=== PATIENT | male | born 1940 | race American Indian/Alaskan Native ===

== ENCOUNTER 2016-11-16 11:20 | Day surgery (SDC) | payer MEDICARE ==
[2016-10-01 12:40] VITALS: BMI 23.5
[~2016-11-16 11:20] MED LIST: mitoMYcin 40 MG/50 ML DISP.SYRIN (FOR OR USE) IC ONE
[2016-11-16] MEDS ORDERED: LIDOCAINE HCL 2% JELLY 10 ML CARTRIDGE ONE (13:01)
[2016-11-16] MEDS ORDERED: PROPOFOL 20 ML ONE (13:10)
[2016-11-16] MEDS ORDERED: MIDAZOLAM HCL 2 MG/2 ML SINGLE DOSE VIAL ONE (13:10)
[2016-11-16] MEDS ORDERED: ETOMIDATE 20 MG/10 ML AMPUL IVPUSH ONE (13:10)
[2016-11-16] MEDS ORDERED: ACETAMINOPHEN 1000 MG/100 ML VIAL (NON FORMULARY) IVPB ONE (13:14)
[2016-11-16] MEDS ORDERED: DEXTROSE 5%-0.45% SALINE 1,000 ML IV SCH (13:15)
[2016-11-16] MEDS ORDERED: ceFAZolin SODIUM 1 GM VIAL ONE (13:18)
[2016-11-16] MEDS ORDERED: ceFAZolin SODIUM 1 GM VIAL IVPB ONE (13:28)
[2016-11-16] MEDS ORDERED: PHENYLEPHRINE HCL 10 MG/1 ML SINGLE DOSE VIAL ONE (13:48)
[2016-11-16] MEDS ORDERED: oxyCODONE HCL 5 MG TABLET PO PRN (14:05)
[2016-11-16] MEDS ORDERED: ACETAMINOPHEN 325 MG TABLET (FP) PO PRN (14:05)
[2016-11-16] MEDS ORDERED: ONDANSETRON 4 MG/2 ML VIAL IVPUSH PRN (14:05)
[2016-11-16] MEDS ORDERED: LIDOCAINE HCL 2% JELLY 10 ML CARTRIDGE TP ONE (14:07)
--- NOTE | 2016-11-16 14:07 | HP ---
History & Physical Update - History History: No Change - Physical Physical: No Change - Assessment Assessment: No Change - Plan Plan: No Change
[2016-11-16] MEDS ORDERED: LACTATED RINGERS SOLUTION 1,000 ML IV SCH (14:15)
--- NOTE | 2016-11-16 14:22 | OP ---
Operative Note - Note: Operative Date: 11/16/16 Pre-Operative Diagnosis: superficial bladder cancer Operation: cystoscopy, transurethral resection of bladder tumor, instillation of mitomycin
[2016-11-16] MEDS ORDERED: ACETAMINOPHEN INJECTION 100 ML IVPB ONE (14:33)
[2016-11-16] MEDS ORDERED: oxyCODONE HCL 5 MG TABLET ONE (16:49)
[2016-11-16 17:49] VITALS: PULSE 78
[2016-11-16 18:00] VITALS: BP 128/70; TEMP 97.8
--- NOTE | 2016-11-17 12:23 | OP ---
DATE OF OPERATION: 11/16/2016 PREOPERATIVE DIAGNOSIS: Bladder cancer. POSTOPERATIVE DIAGNOSIS: Bladder cancer. PROCEDURE: Cystoscopy, transurethral resection of bladder tumor, large, and instillation of mitomycin. FINDINGS: There were multiple large bladder tumors on the lateral wall on the posterior wall and at the bladder neck anteriorly. SPECIMEN: Bladder tumor. DRAINS: Dunaway catheter. ESTIMATED BLOOD LOSS: 25 mL. SURGEON: Saulo Prince MD PREOPERATIVE INDICATIONS: The patient is a 76-year-old male with recurrent superficial bladder cancer. He comes to the OR for resection and instillation of mitomycin. OPERATION: The patient was brought to the OR, placed on the table in the supine position, given general anesthesia and IV antibiotics and placed in the modified lithotomy position. The groin was prepped and draped sterilely. Timeout was performed. Lidocaine was infused into the urethra. Cystoscopy was performed. The distal urethra was unremarkable. The sphincter was seen. The prostate was open and the bladder was examined. Both ureteral orifices were visualized. Lateral to the right ureteral orifice was a large tumor, appeared papillary in nature. On the posterior wall there were 3 large tumors seen, and at the anterior aspect of the bladder neck was a medium size bladder tumor. These were all resected, bases were fulgurated, and specimens were sent for pathological diagnosis. No evidence of perforation was noted. Good hemostasis was seen. The scope was removed. The Dunaway catheter was placed, and 50 mL of mitomycin 40 mg was infused into the bladder and then the Dunaway was clamped. The patient was woken up. Shavon [id number]
--- NOTE | 2016-11-18 15:57 | PATH ---
Surgical Pathology Report Patient Name: CODEY ORTEGA [facility]. Rec. #: [id number] /Age/Gender: 1940 (Age: 76) / M Account: [id number] Location: [facility] SURGICAL Taken: 11/16/2016 Received: 11/17/2016 Reported: 11/18/2016 Physicians: Saulo Prince M.D. Specimen(s) Received BLADDER TUMOR TUR Clinical History Urinary bladder cancer Final Diagnosis BLADDER, TUMOR, TUR: NON-INVASIVE LOW GRADE PAPILLARY UROTHELIAL CARCINOMA. LAMINA PROPRIA INVASION: NOT IDENTIFIED. MUSCULARIS PROPRIA (DETRUSOR): NOT DEFINITIVELY IDENTIFIED. CARCINOMA IN SITU (CIS): NOT IDENTIFIED. Electronically Signed Victor Manuel Miranda M.D. Gross Description Received in formalin labeled "bladder tumor" is a 4.2 x 3.8 x 0.3 cm aggregate of saxena fragments of soft tissue. The formalin is filtered and the specimen is entirely submitted in 3 cassettes. /11/17/2016 saudi11/17/2016
== END 2016-11-16 18:01 | disposition home or self-care (01) ==
LOC: JASU-SURG 11:20
PROVIDERS: ATTEND Urology
PROC: 3E0K8GC Introduction of Other Therapeutic Substance into Genitourinary Tract, Via Natural or Artificial Opening Endoscopic (ICD-10-PCS; 2016-11-16)
PROC: 0T5B8ZZ Destruction of Bladder, Via Natural or Artificial Opening Endoscopic (ICD-10-PCS; principal; 2016-11-16 13:00)
DX: C67.8 Malignant neoplasm of overlapping sites of bladder (principal)
CPT/HCPCS: 51720; 52240; J9280; 88307-TC; 94760

== ENCOUNTER 2019-02-17 09:51 | Observation (INO) | payer OTHER ==
[2019-02-17] MEDS ORDERED: ALBUTEROL SO4 0.083% IH SOL 2.5 MG/3 ML VIAL.NEB. NEB ONE ×2 (10:15→10:59)
[2019-02-17 10:21] VITALS: BMI 22.8
--- NOTE | 2019-02-17 10:28 | PDOC ---
History of Present Illness - General Chief Complaint: Abnormal Lab Results (Outside) Stated Complaint: HIGH POTASSIUM Time Seen by Provider: 02/17/19 10:00 History Source: Patient Exam Limitations: No Limitations - History of Present Illness Initial Comments: 02/17/19 10:16 CHIEF COMPLAINT: Abnormal lab PCP: Dr. Murry Palaeontologist: Jd Stoddard Mr. Roldan is a 76 year old male with a significant medical history of HTN, HLD , GERD, TIA, Borderline DM (diet controlled), CAD s/p CABG wh o presents to the ER for evaluation of abnormal labs Pt was seem at the office yesterday for a regularly scheduled and had labs drawn He was called this morning and told to come immediately to the ER The patient denies known renal insufficiency Incidentally, pt reports that when he wakes up in the morning, he has chest pressure and shortness of breath He had had this for the past 3-4 months He also notes exertional dyspnea No fevers or chills Recent Travel: None PAST MEDICAL HISTORY: See HPI PAST SURGICAL HISTORY: See HPI Social History: Smoking: Cigarette 3 daily Alcohol: None Drugs: None Lives with Spouse. Retired- [employer] Family History: Father: Diabetes Mother: HIV (blood transfusion) Sister: CHF Sister: Stomach Ca Brother- Prostate Ca Allergies No Known Allergies Allergy (Verified 05/15/16 15:57) ROS: GENERAL/CONSTITUTIONAL: No: fever, chills, weakness, loss of appetite. HEAD, EYES, EARS, NOSE AND THROAT: No: change in vision, ear pain, discharge, sore throat, throat swelling. CARDIOVASCULAR: No: chest pain, lightheadedness, palpitations, syncope RESPIRATORY: YeS: cough, shortness of breath, wheezing GASTROINTESTINAL: No: nausea, vomiting, diarrhea, abdominal cramping GENITOURINARY: No: dysuria, hematuria, frequency, urgency, flank pain. MUSCULOSKELETAL: No: back pain, neck pain, joint pain, muscle swelling or pain SKIN AND BREASTS: No: lesions, pallor, rash or easy bruising. NEUROLOGIC: No: headache, vertigo, paresthesias, weakness PE: GENERAL: The patient is in no acute distress. HEAD: Normal with no signs of trauma. EYES: PERRLA, EOMI, sclera anicteric, conjunctiva clear. ENT: Ears normal, nares patent, oropharynx clear without exudates. Moist mucous membranes. NECK: Normal range of motion, supple without lymphadenopathy, JVD, or masses. LUNGS: Breath sounds equal, clear to auscultation bilaterally. No wheezes, and no crackles. HEART:Regular rate and rhythm, normal S1 and S2 without murmur, rub or gallop. ABDOMEN: Soft, nontender, normoactive bowel sounds. EXTREMITIES: 2 + pitting edema to ankles, Normal range of motion NEUROLOGICAL: Cranial nerves II through XII grossly intact. Normal speech. No focal neurological deficits. MUSCULOSKELETAL: Back non-tender to palpation, no CVA tenderness SKIN: Warm, Dry, normal turgor, no rashes or lesions noted. 02/17/19 10:33 Past History - Past Medical History Allergies/Adverse Reactions: Allergies Allergy/AdvReac Type Severity Reaction Status Date / Time No Known Allergies Allergy Verified 02/17/19 10:00 Home Medications: Ambulatory Orders Atorvastatin Ca [Lipitor] 80 mg PO HS 10/26/14 Clopidogrel Bisulfate [Plavix -] 75 mg PO DAILY 10/26/14 Losartan Potassium [Cozaar -] 50 mg PO DAILY 10/26/14 Aspirin [ASA -] 81 mg PO DAILY 02/17/19 Cilostazol [Pletal -] 100 mg PO BID 02/17/19 Anemia: No Asthma: No Cancer: Yes (bladder cancer) Cardiac Disorders: Yes (ATR FIB, DVT, STENT) CVA: No (mini strokes ) COPD: Yes CHF: No Dementia: No Diabetes: Yes (Borderline) GI Disorders: Yes (GERD) Disorders: No HTN: Yes Hypercholesterolemia: Yes Liver Disease: No Seizures: No Thyroid Disease: No - Surgical History Abdominal Surgery: No Appendectomy: No Cardiac Surgery: Yes (Coronary Stents, CABG, fempop bypass 2017) Cholecystectomy: No Lung Surgery: No Neurologic Surgery: No Orthopedic Surgery: Yes (left knee arthroscopy apr 2017) - Suicide/Smoking/Psychosocial Hx Smoking History: Current some day smoker Have you smoked in the past 12 months: Yes Number of Cigarettes Smoked Daily: 10 If you are a former smoker, when did you quit?: 6 months ago Information on smoking cessation initiated: No 'Breaking Loose' booklet given: 10/02/16 Hx Alcohol Use: No Drug/Substance Use Hx: No Substance Use Type: None Hx Substance Use Treatment: No *Physical Exam - Vital Signs Last Vital Signs Temp Pulse Resp BP Pulse Ox 98.4 F 109 H 18 181/93 H 98 02/17/19 09:53 02/17/19 09:53 02/17/19 09:53 02/17/19 09:53 02/17/19 09:53 ED Treatment Course - LABORATORY CBC & Chemistry Diagram: 02/17/19 10:56 02/17/19 11:45 - RADIOLOGY Radiology Studies Ordered: Category Date Time Status CHEST X-RAY PORTABLE* [RAD] Stat Radiology 02/17/19 10:15 Ordered Medical Decision Making - Medical Decision Making 02/17/19 10:28 Mr Roldan presents for repeat labs due to findings of hyperkalemia on outpatient labs He has no history of renal insufficiency EKG - NSR rateo f 97 bpm, axis nml, intervals nml, no st elevation or depression , t wave inversion v4-v6 Possibly lab error, hyperkalemia Will repeat labs EKG does not appear to show hyperkalemia Pt also is short of breath chronically over the past 3-4 months Unclear why he did not discuss this with his PMD yesterday Will do: Cardiacs, BNP and CXR Pt does have wheezing Will give Neb now 02/17/19 11:16 Laboratory Tests 02/17/19 10:56 WBC 3.4 L Hgb 15.2 Hct 47.1 D Plt Count 197 D 02/17/19 11:39 Laboratory Tests 02/17/19 02/17/19 10:56 10:56 Sodium 141 Chloride 103 Carbon Dioxide 33 H Anion Gap 4 L BUN 17.3 Creatinine 1.1 Random Glucose 92 Creatine Kinase 124 Troponin I < 0.02 B-Natriuretic Peptide 73.0 Potassium 6.1 hemolyzed 02/17/19 11:40 CXR - nml 02/17/19 12:26 Laboratory Tests 02/17/19 11:45 Sodium 140 Potassium 4.2 Chloride 105 Carbon Dioxide 30 BUN 16.1 Creatinine 1.0 Pt reports that he continues to have chest pain 02/17/19 12:[address] on observation *DC/Admit/Observation/Transfer Diagnosis at time of Disposition: Chest pain Qualifiers: Chest pain type: unspecified Qualified Code(s): R07.9 - Chest pain, unspecified - Discharge Dispostion Disposition: AGAINST MEDICAL ADVICE Condition at time of disposition: Stable Decision to Admit order: Yes - Referrals - Patient Instructions - Post Discharge Activity
[2019-02-17 11:05] LABS: BASO % 0.8 % (0-2.0); HEMATOCRIT 47.1 % (35.4-49); HEMOGLOBIN 15.2 GM/dL (11.7-16.9); LYMPH % 31.2 % (8-40); MCH 27.6 pg (25.7-33.7); MCHC 32.4 g/dl (32.0-35.9); MEAN CELL VOLUME 85.4 fl (80-96); MEAN PLT VOLUME 7.6 fl (7.5-11.1); MONO % 12.6 % (3.8-10.2); NEUT % 53.4 % (42.8-82.8); PLATELET COUNT 197 K/MM3 (134-434); RBC 5.52 M/mm3 (4.00-5.60); RDW 14.9 % (11.9-15.9); WHITE BLOOD COUNT 3.4 K/mm3 (4.0-10.0)
[2019-02-17 11:34] LABS: ALBUMIN 4.1 g/dl (3.4-5.0); ALK PHOS 110 U/L (45-117); ANION GAP 4 MMOL/L (8-16); BILIRUBIN,TOTAL 0.6 mg/dL (0.2-1); BLOOD UREA NITROGEN 17.3 mg/dL (7-18); CALCIUM 10.6 mg/dL (8.5-10.1); CHLORIDE 103 mmol/L (98-107); CO2 33 mmol/L (21-32); CREATININE 1.1 mg/dL (0.55-1.3); GLUCOSE,RANDOM 92 mg/dL (74-106); SGOT/AST 25 U/L (15-37); SGPT/ALT 20 U/L (13-61); SODIUM 141 mmol/L (136-145); TOT PROT 7.8 g/dl (6.4-8.2)
[2019-02-17 12:16] LABS: BLOOD UREA NITROGEN 16.1 mg/dL (7-18); CALCIUM 10.2 mg/dL (8.5-10.1); POTASSIUM 4.2 mmol/L (3.5-5.1)
[2019-02-17] MEDS ORDERED: ASPIRIN 81 MG CHEWABLE TABLETS PO ONE (12:27)
[2019-02-17] MEDS ORDERED: ASPIRIN 81 MG CHEWABLE TABLETS ONE (12:49)
[2019-02-17 13:27] VITALS: BP 148/85; PULSE 80; TEMP 98.5
--- NOTE | 2019-02-17 13:57 | EKG ---
Test Reason : Blood Pressure : / mmHG Vent. Rate : 097 BPM Atrial Rate : 097 BPM P-R Int : 178 ms QRS Dur : 080 ms QT Int : 334 ms P-R-T Axes : 083 064 110 degrees QTc Int : 424 ms NORMAL SINUS RHYTHM BIATRIAL ENLARGEMENT CANNOT RULE OUT INFERIOR INFARCT (CITED ON OR BEFORE 16-MAY-2016) T WAVE ABNORMALITY, CONSIDER LATERAL ISCHEMIA ABNORMAL ECG Confirmed by MARIO LUX MD ([id number]) on 02/17/2019 1:56:37 PM Referred By: Confirmed By:MARIO LUX MD
[2019-02-17] MEDS ORDERED: ALBUTEROL SO4 0.083% IH SOL 2.5 MG/3 ML VIAL.NEB. NEB PRN (14:04)
--- NOTE | 2019-02-17 14:37 | HP ---
CHIEF COMPLAINT: Chest Pressure PCP: Dr. Murry Ground Products Director: Jd Stoddard HISTORY OF PRESENT ILLNESS: 79 y/o M with PMHx of CAD (Prior [place], ?5-stents, CABG) Multiple TIA's, DMII (? Borderline), Bladder and prostate ca (s/p surgical resection), HTN, PAD, HLD, GERD presents with Chest pressure + Hyperkalemia. Patient visited his PCP yesterday for a routine visit where lab work was drawn. This morning, patient was informed that his K+ was >6.0 and he was advised to immediately visit the ED. During his visit [facility], he mentions having chest pressure and exertional dyspnea. Patient describes the Chest pressure as 8/10, surrounding his sternal bone b/l without radiation, that came on suddenly 1 week ago and waxes and wanes. He has not tried anything for the pain and is unable to identify any triggers. Denies any associated trauma or rash. He initially thought this was gas, tried OTC therapy without any relief. He feels this pressure is very different from his prior [place]. He additionally mentions having had exertional dyspnea for the past 6 months. He initially noticed this by having decreased exercise tolerance and now is short of breath with tying his shoes. He additionally endorses orthopnea for the past year. Denies any associated fevers, chills, chest pain, SOB, nausea, vomiting, diarrhea, constipation. ER course was notable for: (1) ASA 162mg, Ventolin (2) (3) Recent Travel: Denies PAST MEDICAL HISTORY: As above PAST SURGICAL HISTORY: Bladder and Prostate ca Varicose veins sx CABG ?Stenting Social History: Smokin Cigs daily; Started smoking at age 10, at worst was 2 ppd Alcohol: Denies Drugs: Denies Occupation: Retired delivery driver assistant Ambulation: Cane/Walker Residence: with Family History: Father: DM Mother: HTN, Colon Ca (s/p surgical resection and Blood transfusion with resultant HIV transmission) Siblings: Stomach Ca, Prostate Ca Allergies No Known Allergies Allergy (Verified 02/17/19 10:00) HOME MEDICATIONS: Home Medications Medication Instructions Recorded Atorvastatin Ca [Lipitor] 80 mg PO HS 10/26/14 Clopidogrel Bisulfate [Plavix -] 75 mg PO DAILY 10/26/14 Losartan Potassium [Cozaar -] 50 mg PO DAILY 10/26/14 Cilostazol [Pletal -] 100 mg PO BID 03/21/18 Pantoprazole Sodium [Protonix -] 40 mg PO DAILY 03/21/18 REVIEW OF SYSTEMS As per [facility] PHYSICAL EXAMINATION Vital Signs - 24 hr 02/17/19 02/17/19 02/17/19 09:53 11:31 13:26 Temperature 98.4 F 97.9 F 98.5 F Pulse Rate 109 H Pulse Rate [ 85 80 Apical] Respiratory 18 19 20 Rate Blood Pressure 181/93 H Blood Pressure 165/88 148/85 [Right Arm] O2 Sat by Pulse 98 98 Oximetry (%) GENERAL: A&Ox3, NAD HEAD: NCAT EYES: PERRL, EOMI ENT: Moist mucous membranes NECK: Supple, No JVD LUNGS: Tachycardic, No wheezes, no crackles HEART: Regular rate and rhythm, normal S1 and S2 without murmur ABDOMEN: Soft, nontender, not distended, + bowel sounds, no guarding, no rebound MUSCULOSKELETAL: No CVA tenderness. EXTREMITIES: No peripheral edema. NEUROLOGICAL: Cranial nerves II-XII intact. SKIN: Warm, dry, Midsternal surgical scar Laboratory Results - last 24 hr 02/17/19 02/17/19 02/17/19 10:56 10:56 10:56 WBC 3.4 L RBC 5.52 Hgb 15.2 Hct 47.1 D MCV 85.4 MCH 27.6 MCHC 32.4 RDW 14.9 Plt Count 197 D MPV 7.6 Absolute Neuts (auto) 1.8 Neutrophils % 53.4 Lymphocytes % 31.2 D Monocytes % 12.6 H Eosinophils % 2.0 D Basophils % 0.8 Nucleated RBC % 0 Sodium 141 Potassium Chloride 103 Carbon Dioxide 33 H Anion Gap 4 L BUN 17.3 Creatinine 1.1 Est GFR (CKD-EPI)AfAm 72.58 Est GFR (CKD-EPI)NonAf 62.62 Random Glucose 92 Calcium 10.6 H Total Bilirubin 0.6 AST 25 ALT 20 Alkaline Phosphatase 110 Creatine Kinase 124 Troponin I < 0.02 B-Natriuretic Peptide 73.0 Total Protein 7.8 Albumin 4.1 02/17/19 11:45 WBC RBC Hgb Hct MCV MCH MCHC RDW Plt Count MPV Absolute Neuts (auto) Neutrophils % Lymphocytes % Monocytes % Eosinophils % Basophils % Nucleated RBC % Sodium 140 Potassium 4.2 Chloride 105 Carbon Dioxide 30 Anion Gap 5 L BUN 16.1 Creatinine 1.0 Est GFR (CKD-EPI)AfAm 81.45 Est GFR (CKD-EPI)NonAf 70.27 Random Glucose 87 Calcium 10.2 H Total Bilirubin AST ALT Alkaline Phosphatase Creatine Kinase Troponin I B-Natriuretic Peptide Total Protein Albumin Active Medications Albuterol Sulfate (Ventolin 0.083% Nebulizer Soln -) 1 amp NEB Q6H PRN PRN Reason: SHORT OF BREATH/WHEEZING Heparin Sodium (Porcine) (Heparin -) 5,000 unit SQ TID ROSA ELENA Insulin Aspart (Novolog Vial Sliding Scale -) 1 vial SQ ACHS ROSA ELENA; Protocol Losartan Potassium (Cozaar -) 50 mg PO DAILY ROSA ELENA Last Admin: 02/17/19 15:17 Dose: 50 mg ASSESSMENT/PLAN: 79 y/o M with PMHx of CAD (Prior MD, ?5-stents, CABG) Multiple TIA's, DMII (? Borderline), Bladder and prostate ca (s/p surgical resection), HTN, PAD, HLD, GERD presents with Chest pressure + Hyperkalemia. #Chest Pressure + Exertional Dyspnea -Concern for unstable angina, must r/o ACS given risk factors (prior MD, ? stenting/CABG, Tobacco use, DM); Currently not having active chest pain -First Trop < 0.02, EKG with ?new TWI in V4-V6 (Last EKG on file from 2014) -CXR Negative -Trend Trops and EKG -Check ECHO, TSH, A1c, Lipid panel -Cardiology (Dr. Moffett) consulted -Given ASA 162mg in ED -Tele -Continue Ventolin, Home dose ASA Plavix and statin #Multiple TIA's -Continue Home dose ASA Plavix and statin #PAD -Continue home dose Cilostazol #DMII -ISS BGMs ACHS #Bladder and prostate ca -s/p surgical resection; Continue outpatient follow up #HTN -Initially hypertensive but now normotensive -Continue home dose losartan #FEN -No standing fluids -Lytes WNL -Sodium Controlled diet #PPx -DVT: Heparin Dispo: Tele-Obs Visit type - Emergency Visit Emergency Visit: Yes ED Registration Date: 02/17/19 Care time: The patient presented to the Emergency Department on the above date and was hospitalized for further evaluation of their emergent condition. - New Patient This patient is new to me today: Yes Date on this admission: 02/18/19 - Critical Care Critical Care patient: No ATTENDING PHYSICIAN STATEMENT I saw and evaluated the patient. I reviewed the resident's note and discussed the case with the resident. I agree with the resident's findings and plan as documented. SUBJECTIVE: OBJECTIVE: ASSESSMENT AND PLAN:
[2019-02-17] MEDS ORDERED: LOSARTAN POTASSIUM 50 MG TABLET (FP) PO SCH (14:45)
--- NOTE | 2019-02-17 14:54 | ECHO ---
Name: CODEY ORTEGA Exam:Adult Echocardiogram Study Date: 02/17/2019 02:16 PM Age: 79 yrs Reason For Study: R/O LV DYSFUNCTION MMode/2D Measurements & Calculations IVSd: 1.0 cm Ao root diam: 2.7 cm LVIDd: 3.2 cm LA dimension: 2.9 cm LVIDs: 2.4 cm LVPWd: 1.1 cm LVPWs: 1.6 cm EDV(Teich): 42.2 ml ESV(Teich): 20.9 ml LVOT diam: 1.9 cm TAPSE: 1.4 cm Doppler Measurements & Calculations MV E max jazmine: 53.8 cm/sec AI max jazmine: 124.9 cm/sec MV A max jazmine: 85.4 cm/sec AI max P.2 mmHg MV E/A: 0.63 MV dec time: 0.45 sec Left Ventricle Left ventricular systolic function is normal. Ejection Fraction = 55-60%. The transmitral spectral Do ppler flow pattern is suggestive of impaired LV relaxation. Right Ventricle The right ventricle is normal in size and function. Atria Normal left and right atrial size and function. Mitral Valve The mitral valve is normal in structure and function. There is no mitral valve stenosis. There is mil d mitral regurgitation. Tricuspid Valve The tricuspid valve is normal in structure and function. No tricuspid regurgitation. Aortic Valve The aortic valve opens well. No hemodynamically significant valvular aortic stenosis. Trace to mild a ortic regurgitation. Pulmonic Valve The pulmonic valve is not well seen, but is grossly normal. There is no pulmonic valvular stenosis. T here is no pulmonic valvular regurgitation. Great Vessels The aortic root is normal size. Pericardium/Pleura There is no pericardial effusion. Interpretation Summary Left ventricular systolic function is normal. Ejection Fraction = 55-60%. The right ventricle is normal in size and function. The transmitral spectral Doppler flow pattern is suggestive of impaired LV relaxation. There is mild mitral regurgitation. Trace to mild aortic regurgitation. There is no pericardial effusion. MD Ishaan Boyd 02/17/2019 02:54 PM
--- NOTE | 2019-02-17 15:07 | CON.CARD ---
Consult Consult Specialty:: Cardiology Referred by:: Hospitalist Medicine Reason for Consultation:: Chest pain - History of Present Illness Chief Complaint: Chest pain History of Present Illness: CHIEF COMPLAINT: Chest Pressure PCP: Dr. Murry Acute Care Nurse: Jd Stoddard HISTORY OF PRESENT ILLNESS: 79 y/o M with PMHx of CAD s/p CABG 2010, Multiple TIA's s/p right CEA, DMII (? Borderline), Bladder and prostate ca (s/p surgical resection), HTN, PAD s/p left fem-fem bypass, HLD, GERD, last saw Dr. Jd Douglsa at [facility] 12/19/2018 presented with chest pressure and hyperkalemia K+ was >6.0 and was advised by PMD to immediately visit the ED. During his visit [facility], he mentions having chest pressure and exertional dyspnea. Patient describes the Chest pressure as 8 /10, surrounding his sternal bone b/l without radiation, that came on suddenly 1 week ago and waxes and wanes. He has not tried anything for the pain and is unable to identify any triggers. Denies any associated trauma or rash. He initially thought this was gas, tried OTC therapy without any relief. He feels this pressure is very different from his prior [place]. He additionally mentions having had exertional dyspnea for the past 6 months. He initially noticed this by having decreased exercise tolerance and now is short of breath with tying his shoes. He additionally endorses orthopnea for the past year. - History Source History Provided By: Medical Record Limitations to Obtaining History: Poor Historian - Past Medical History [employer]: Yes: TIA Cardio/Vascular: Yes: AFIB, CAD, HTN, Hyperlipdemia, Other (DVT) Pulmonary: Yes: Asthma, COPD Gastrointestinal: Yes: GERD - Past Surgical History Past Surgical History: Yes: CABG - Alcohol/Substance Use Hx Alcohol Use: No History of Substance Use: reports: None - Smoking History Smoking history: Current some day smoker Have you smoked in the past 12 months: Yes Aproximately how many cigarettes per day: 10 If you are a former smoker, when did you quit?: 6 months ago Home Medications - Allergies Allergies/Adverse Reactions: Allergies Allergy/AdvReac Type Severity Reaction Status Date / Time No Known Allergies Allergy Verified 02/17/19 10:00 - Home Medications Home Medications: Ambulatory Orders Atorvastatin Ca [Lipitor] 80 mg PO HS 10/26/14 Clopidogrel Bisulfate [Plavix -] 75 mg PO DAILY 10/26/14 Losartan Potassium [Cozaar -] 50 mg PO DAILY 10/26/14 Aspirin [ASA -] 81 mg PO DAILY 02/17/19 Cilostazol [Pletal -] 100 mg PO BID 02/17/19 Family Disease History - Family Disease History Family Disease History: Heart Disease: Father (, ), Sister ( - ) , CA: Brother (, prostate cancer), Other: Father, Mother (, HIV (blood transfusion)), Brother, Sister, Son (ages 21, 26 healthy) Vital Signs: Vital Signs Temperature 98.5 F 02/17/19 13:26 Pulse Rate 80 02/17/19 13:26 Respiratory Rate 20 02/17/19 13:26 Blood Pressure 148/85 02/17/19 13:26 O2 Sat by Pulse Oximetry (%) 98 02/17/19 11:31 - Other Data Labs, Other Data: CBC, BMP 02/17/19 10:56 02/17/19 11:45 Troponin, BNP 02/17/19 02/17/19 10:56 10:56 Troponin I < 0.02 B-Natriuretic Peptide 73.0 Troponin, BNP 02/17/19 02/17/19 10:56 10:56 Troponin I < 0.02 B-Natriuretic Peptide 73.0 NSR @ 97 SANTY inferolateral TWI similar to previous December 19, 2018 Imaging - Results Chest X-ray: Report Reviewed (NAD) Problem List - Problems (1) Chest pain Code(s): R07.9 - CHEST PAIN, UNSPECIFIED Qualifiers: Chest pain type: unspecified Qualified Code(s): R07.9 - Chest pain, unspecified (2) Cigarette nicotine dependence Code(s): F17.210 - NICOTINE DEPENDENCE, CIGARETTES, UNCOMPLICATED (3) Dyspnea Code(s): R06.00 - DYSPNEA, UNSPECIFIED Qualifiers: Dyspnea type: dyspnea on exertion Qualified Code(s): R06.09 - Other forms of dyspnea (4) HLD (hyperlipidemia) Code(s): E78.5 - HYPERLIPIDEMIA, UNSPECIFIED Qualifiers: Hyperlipidemia type: pure hypercholesterolemia Qualified Code(s): E78.00 - Pure hypercholesterolemia, unspecified; E78.0 - Pure hypercholesterolemia (5) HTN (hypertension) Code(s): I10 - ESSENTIAL (PRIMARY) HYPERTENSION Qualifiers: Hypertension type: essential hypertension Qualified Code(s): I10 - Essential (primary) hypertension (6) History of [place] (myocardial infarction) Code(s): I25.2 - OLD MYOCARDIAL INFARCTION (7) Hx of CABG Code(s): Z95.1 - PRESENCE OF AORTOCORONARY BYPASS GRAFT Assessment/Plan 02/17/2019 Echo: Normal LV and RV size and fxn, abnl LV compliance, mild MR, AR 01/20/2019 Lexiscan Myoview: No ischemia, normal LVEF 65% 10/12/2017 Echo: Normal LV size with hyperdynamic LV fxn, abnl LV compliance, normal RV size and fxn, mild MR, tr TR c/w previous 07/11/2013, no sig change 79 y/o M with PMHx of CAD (Prior [place], ?5-stents, CABG) Multiple TIA's, DMII (? Borderline), Bladder and prostate ca (s/p surgical resection), HTN, PAD, HLD, GERD presents with Chest pressure + Hyperkalemia. 1. Chest pain and HAQUE with underlying CAD s/p [place], CABG, angina pectoris 2. Diastolic dysfunction, euvolemic 3. COPD 4. Carotid stenosis s/p right CEA 5. HTN 6. Hyperlipidemia 7. Type 2 DM 8. Cerebrovascular disease h/o TIA 9. Hyperkalemia since resolved 10. Bladder and prostate ca s/p resection 11. PAD s/p LLE fem-fem bypass 12. Smoker 13. H/o GI bleed s/p laser P:1. Ruling out for [place] 2. F/u echocardiogram 3. ASA 81 qd, Lipitor 80 qd, Pletal 100 bid, Plavix 75 qd, add carvedilol 6.25 bid and observe for wheezes 3. Resume losartan with resolution of hyperkalemia 4. Patient to f/u with Dr. Jd Douglas upon d/c, smoking cessation 5. Thank you for consultative opportunity
[2019-02-17] MEDS ORDERED: LOSARTAN POTASSIUM 50 MG TABLET (FP) ONE (15:17)
[2019-02-17] MEDS ORDERED: CLOPIDOGREL BISULFATE 75 MG TABLET (FP) PO SCH (15:30)
[2019-02-17] MEDS ORDERED: CLOPIDOGREL BISULFATE 75 MG TABLET (FP) ONE (15:31)
[2019-02-17] MEDS ORDERED: INSULIN SLIDING SCALE (NOVOLOG) 1 VIAL SQ SCH (16:30)
--- NOTE | 2019-02-17 16:49 | PN ---
Teaching Attending Note Name of Resident: Alaina Woo ATTENDING PHYSICIAN STATEMENT I saw and evaluated the patient. I reviewed the resident's note and discussed the case with the resident. I agree with the resident's findings and plan as documented. SUBJECTIVE: Patient is an 79yo male with PMHx of CAD (Prior NH with stents, CABG) Multiple TIA's, DMII, Bladder and prostate ca (s/p surgical resection), HTN, PAD, HLD, GERD presents with Chest pressure with exertional dyspnea. Patient describes the Chest pressure as 8/10 without radiation. OBJECTIVE: Vital Signs Temperature 98.5 F 02/17/19 13:26 Pulse Rate 80 02/17/19 13:26 Respiratory Rate 20 02/17/19 13:26 Blood Pressure 148/85 02/17/19 13:26 O2 Sat by Pulse Oximetry (%) 98 02/17/19 11:31 GENERAL: The patient is awake, alert, and fully oriented, in no acute distress. HEAD: Normal with no signs of trauma. EYES: PERRL, extraocular movements intact, sclera anicteric, conjunctiva clear. ENT: Ears normal, oropharynx clear without exudates, moist mucous membranes. NECK: Trachea midline, full range of motion, supple. LUNGS: Breath sounds equal, clear to auscultation bilaterally, no wheezes, no crackles, no accessory muscle use. HEART: Regular rate and rhythm, S1, S2 positive, no rub or gallop. ABDOMEN: Soft, nontender, nondistended, normoactive bowel sounds, no guarding, no rebound, no hepatosplenomegaly, no masses. EXTREMITIES: 2+ pulses, warm, well-perfused, no edema. NEUROLOGICAL: Cranial nerves II through XII grossly intact. Normal speech, gait is stable. PSYCH: Normal mood, normal affect. SKIN: Warm, dry, normal turgor, no rashes or lesions noted CBCD WBC 3.4 K/mm3 (4.0-10.0) L 02/17/19 10:56 RBC 5.52 M/mm3 (4.00-5.60) 02/17/19 10:56 Hgb 15.2 GM/dL (11.7-16.9) 02/17/19 10:56 Hct 47.1 % (35.4-49) D 02/17/19 10:56 MCV 85.4 fl (80-96) 02/17/19 10:56 MCHC 32.4 g/dl (32.0-35.9) 02/17/19 10:56 RDW 14.9 % (11.9-15.9) 02/17/19 10:56 Plt Count 197 K/MM3 (134-434) D 02/17/19 10:56 MPV 7.6 fl (7.5-11.1) 02/17/19 10:56 CMP Sodium 140 mmol/L (136-145) 02/17/19 11:45 Potassium 4.2 mmol/L (3.5-5.1) 02/17/19 11:45 Chloride 105 mmol/L (98-107) 02/17/19 11:45 Carbon Dioxide 30 mmol/L (21-32) 02/17/19 11:45 Anion Gap 5 MMOL/L (8-16) L 02/17/19 11:45 BUN 16.1 mg/dL (7-18) 02/17/19 11:45 Creatinine 1.0 mg/dL (0.55-1.3) 02/17/19 11:45 Random Glucose 87 mg/dL (74-106) 02/17/19 11:45 Calcium 10.2 mg/dL (8.5-10.1) H 02/17/19 11:45 Total Bilirubin 0.6 mg/dL (0.2-1) 02/17/19 10:56 AST 25 U/L (15-37) 02/17/19 10:56 ALT 20 U/L (13-61) 02/17/19 10:56 Alkaline Phosphatase 110 U/L (45-117) 02/17/19 10:56 Total Protein 7.8 g/dl (6.4-8.2) 02/17/19 10:56 Albumin 4.1 g/dl (3.4-5.0) 02/17/19 10:56 CARDIAC ENZYMES Creatine Kinase 124 U/L (26-308) 02/17/19 10:56 Troponin I < 0.02 ng/ml (0.00-0.05) 02/17/19 10:56 Current Medications Generic Name Dose Route Start Last Admin Trade Name Freq PRN Reason Stop Dose Admin Albuterol Sulfate 1 amp 02/17/19 14:04 Ventolin 0.083% Nebulizer Soln - NEB Q6H PRN SHORT OF BREATH/WHEEZING Aspirin 81 mg 02/18/19 10:00 Asa - PO DAILY [facility] Atorvastatin Calcium 80 mg 02/17/19 22:00 Lipitor - PO HS ROSA ELENA Cilostazol 100 mg 02/17/19 22:00 Pletal - PO BID ROSA ELENA Clopidogrel Bisulfate 75 mg 02/17/19 15:30 02/17/19 15:33 Plavix - PO 75 mg DAILY ROSA ELENA Administration Heparin Sodium (Porcine) 5,000 unit 02/17/19 22:00 Heparin - SQ TID ROSA ELENA Insulin Aspart 1 vial 02/17/19 16:30 02/17/19 15:29 Novolog Vial Sliding Scale - SQ 4 unit ACHS [facility] Administration Protocol Losartan Potassium 50 mg 02/17/19 14:45 02/17/19 15:17 Cozaar - PO 50 mg DAILY ROSA ELENA Administration Home Medications Medication Instructions Recorded Atorvastatin Ca [Lipitor] 80 mg PO HS 10/26/14 Clopidogrel Bisulfate [Plavix -] 75 mg PO DAILY 10/26/14 Losartan Potassium [Cozaar -] 50 mg PO DAILY 10/26/14 Aspirin [ASA -] 81 mg PO DAILY 02/17/19 Cilostazol [Pletal -] 100 mg PO BID 02/17/19 ASSESSMENT AND PLAN: Patient is an 79yo male with PMHx of CAD (Prior NH, 5-stents, CABG) Multiple TIA 's, T2DM, Bladder and prostate ca (s/p surgical resection), HTN, PAD, HLD, GERD presents with Chest pressure 8/10 without any radiation. #Acute chest pain r/o acs, 1st troponin is negative.cardio consult, troponin x2 , ekg in am, for observation to tele. #Multiple TIA's: continue Home dose ASA Plavix and statin #PAD: continue home dose Cilostazol #T2DM:ISS BGMs ACHS #Bladder and prostate ca:s/p surgical resection;f/u as an outpatient #HTN: continue home dose losartan PPx DVT: Heparin
[2019-02-17] MEDS ORDERED: ATORVASTATIN CA 80 MG TABLET (FP) PO SCH (22:00)
[2019-02-17] MEDS ORDERED: CILOSTAZOL 100 MG TABLET PO SCH (22:00)
[2019-02-17] MEDS ORDERED: HEPARIN NA (PORCINE) 5,000 UNITS/ML 1ML VIAL SQ SCH (22:00)
--- NOTE | 2019-02-18 06:52 | DS ---
Physical Exam: SUBJECTIVE: Patient seen and examined OBJECTIVE: Vital Signs Period Temp Pulse Resp BP Sys/Tripp Pulse Ox Last 24 Hr 97.9 F-98.5 F 80-109 18-20 148-181/85-93 98-98 PHYSICAL EXAM GENERAL: The patient is awake, alert, and fully oriented, in no acute distress. HEAD: Normal with no signs of trauma. EYES: PERRL, extraocular movements intact, sclera anicteric, conjunctiva clear. ENT: Ears normal, nares patent, oropharynx clear without exudates, moist mucous membranes. NECK: Trachea midline, full range of motion, supple. LUNGS: Breath sounds equal, clear to auscultation bilaterally, no wheezes, no crackles, no accessory muscle use. HEART: Regular rate and rhythm, S1, S2 without murmur, rub or gallop. ABDOMEN: Soft, nontender, nondistended, normoactive bowel sounds, no guarding, no rebound, no hepatosplenomegaly, no masses. EXTREMITIES: 2+ pulses, warm, well-perfused, no edema. NEUROLOGICAL: Cranial nerves II through XII grossly intact. Normal speech, gait not observed. PSYCH: Normal mood, normal affect. SKIN: Warm, dry, normal turgor, no rashes or lesions noted. LABS Laboratory Results - last 24 hr 02/17/19 02/17/19 02/17/19 10:56 10:56 10:56 WBC 3.4 L RBC 5.52 Hgb 15.2 Hct 47.1 D MCV 85.4 MCH 27.6 MCHC 32.4 RDW 14.9 Plt Count 197 D MPV 7.6 Absolute Neuts (auto) 1.8 Neutrophils % 53.4 Lymphocytes % 31.2 D Monocytes % 12.6 H Eosinophils % 2.0 D Basophils % 0.8 Nucleated RBC % 0 Sodium 141 Potassium Chloride 103 Carbon Dioxide 33 H Anion Gap 4 L BUN 17.3 Creatinine 1.1 Est GFR (CKD-EPI)AfAm 72.58 Est GFR (CKD-EPI)NonAf 62.62 POC Glucometer Random Glucose 92 Calcium 10.6 H Total Bilirubin 0.6 AST 25 ALT 20 Alkaline Phosphatase 110 Creatine Kinase 124 Troponin I < 0.02 B-Natriuretic Peptide 73.0 Total Protein 7.8 Albumin 4.1 02/17/19 02/17/19 11:45 15:25 WBC RBC Hgb Hct MCV MCH MCHC RDW Plt Count MPV Absolute Neuts (auto) Neutrophils % Lymphocytes % Monocytes % Eosinophils % Basophils % Nucleated RBC % Sodium 140 Potassium 4.2 Chloride 105 Carbon Dioxide 30 Anion Gap 5 L BUN 16.1 Creatinine 1.0 Est GFR (CKD-EPI)AfAm 81.45 Est GFR (CKD-EPI)NonAf 70.27 POC Glucometer 202 Random Glucose 87 Calcium 10.2 H Total Bilirubin AST ALT Alkaline Phosphatase Creatine Kinase Troponin I B-Natriuretic Peptide Total Protein Albumin HOSPITAL COURSE: Date of Admission:02/17/19 Date of Discharge: 02/17/19 Discharge Summary Reason For Visit: CHEST PAIN Current Active Problems Chest pain (Acute) Condition: Stable - Instructions - Home Medications Comprehensive Discharge Medication List: Ambulatory Orders Atorvastatin Ca [Lipitor] 80 mg PO HS 10/26/14 Clopidogrel Bisulfate [Plavix -] 75 mg PO DAILY 10/26/14 Losartan Potassium [Cozaar -] 50 mg PO DAILY 10/26/14 Aspirin [ASA -] 81 mg PO DAILY 02/17/19 Cilostazol [Pletal -] 100 mg PO BID 02/17/19 ATTENDING PHYSICIAN STATEMENT I saw and evaluated the patient. I reviewed the resident's note and discussed the case with the resident. I agree with the resident's findings and plan as documented. SUBJECTIVE: OBJECTIVE: ASSESSMENT AND PLAN:
--- NOTE | 2019-02-18 08:17 | DS ---
Physical Exam: SUBJECTIVE: Patient seen and examined Patient signed against medical advice, stated that he feels fine and does not want to stay. OBJECTIVE: Vital Signs Period Temp Pulse Resp BP Sys/Tripp Pulse Ox Last 24 Hr 97.9 F-98.5 F 80-109 18-20 148-181/85-93 98-98 PHYSICAL EXAM GENERAL: The patient is awake, alert, and fully oriented, in no acute distress. HEAD: Normal with no signs of trauma. EYES: PERRL, extraocular movements intact, sclera anicteric, conjunctiva clear. ENT: Ears normal, nares patent, oropharynx clear without exudates, moist mucous membranes. NECK: Trachea midline, full range of motion, supple. LUNGS: Breath sounds equal, clear to auscultation bilaterally, no wheezes, no crackles, no accessory muscle use. HEART: Regular rate and rhythm, S1, S2 positive, no rub or gallop. ABDOMEN: Soft, nontender, nondistended, normoactive bowel sounds, no guarding, no rebound, no hepatosplenomegaly, no masses. EXTREMITIES: 2+ pulses, warm, well-perfused, no edema. NEUROLOGICAL: Cranial nerves II through XII grossly intact. Normal speech, gait not observed. PSYCH: Normal mood, normal affect. SKIN: Warm, dry, normal turgor, no rashes or lesions noted. LABS Laboratory Results - last 24 hr 02/17/19 02/17/19 02/17/19 10:56 10:56 10:56 WBC 3.4 L RBC 5.52 Hgb 15.2 Hct 47.1 D MCV 85.4 MCH 27.6 MCHC 32.4 RDW 14.9 Plt Count 197 D MPV 7.6 Absolute Neuts (auto) 1.8 Neutrophils % 53.4 Lymphocytes % 31.2 D Monocytes % 12.6 H Eosinophils % 2.0 D Basophils % 0.8 Nucleated RBC % 0 Sodium 141 Potassium Chloride 103 Carbon Dioxide 33 H Anion Gap 4 L BUN 17.3 Creatinine 1.1 Est GFR (CKD-EPI)AfAm 72.58 Est GFR (CKD-EPI)NonAf 62.62 POC Glucometer Random Glucose 92 Calcium 10.6 H Total Bilirubin 0.6 AST 25 ALT 20 Alkaline Phosphatase 110 Creatine Kinase 124 Troponin I < 0.02 B-Natriuretic Peptide 73.0 Total Protein 7.8 Albumin 4.1 02/17/19 02/17/19 11:45 15:25 WBC RBC Hgb Hct MCV MCH MCHC RDW Plt Count MPV Absolute Neuts (auto) Neutrophils % Lymphocytes % Monocytes % Eosinophils % Basophils % Nucleated RBC % Sodium 140 Potassium 4.2 Chloride 105 Carbon Dioxide 30 Anion Gap 5 L BUN 16.1 Creatinine 1.0 Est GFR (CKD-EPI)AfAm 81.45 Est GFR (CKD-EPI)NonAf 70.27 POC Glucometer 202 Random Glucose 87 Calcium 10.2 H Total Bilirubin AST ALT Alkaline Phosphatase Creatine Kinase Troponin I B-Natriuretic Peptide Total Protein Albumin HOSPITAL COURSE: Date of Admission:02/17/19 Date of Discharge: 02/17/19 ASSESSMENT AND PLAN: Patient is an 79yo male with PMHx of CAD (Prior [place], 5-stents, CABG) Multiple TIA 's, T2DM, Bladder and prostate ca (s/p surgical resection), HTN, PAD, HLD, GERD presents with Chest pressure 8/10 without any radiation. #Acute chest pain r/o acs, 1st troponin is negative.cardio consult, troponin x2 , ekg in am, for observation to tele. #Multiple TIA's: continue Home dose ASA Plavix and statin #PAD: continue home dose Cilostazol #T2DM:ISS BGMs ACHS #Bladder and prostate ca:s/p surgical resection;f/u as an outpatient #HTN: continue home dose losartan PPx DVT: Heparin Patient was explained that he might have a heart attack and can follow. Patient understands and does not want to stay. Minutes to complete discharge: 20 Discharge Summary Reason For Visit: CHEST PAIN Current Active Problems Chest pain (Acute) Condition: Stable - Instructions - Home Medications Comprehensive Discharge Medication List: Ambulatory Orders Atorvastatin Ca [Lipitor] 80 mg PO HS 10/26/14 Clopidogrel Bisulfate [Plavix -] 75 mg PO DAILY 10/26/14 Losartan Potassium [Cozaar -] 50 mg PO DAILY 10/26/14 Aspirin [ASA -] 81 mg PO DAILY 02/17/19 Cilostazol [Pletal -] 100 mg PO BID 02/17/19 This patient is new to me today: No Emergency Visit: Yes ED Registration Date: 02/17/19 Care time: The patient presented to the Emergency Department on the above date and was hospitalized for further evaluation of their emergent condition. Critical Care patient: No - Discharge Referral Referred to [facility] Med P.C.: No
[2019-02-18] MEDS ORDERED: ASPIRIN 81 MG CHEWABLE TABLETS PO SCH (10:00)
--- NOTE | 2019-02-18 15:06 | EKG ---
Test Reason : Blood Pressure : / mmHG Vent. Rate : 090 BPM Atrial Rate : 090 BPM P-R Int : 198 ms QRS Dur : 072 ms QT Int : 326 ms P-R-T Axes : 083 070 -86 degrees QTc Int : 398 ms SINUS RHYTHM APCs T WAVE ABNORMALITY, CONSIDER INFERIOR ISCHEMIA ABNORMAL ECG WHEN COMPARED WITH ECG OF 17-FEB-2019 09:56, NO SIGNIFICANT CHANGE WAS FOUND Confirmed by MD ORALIA, TOMÁS ([id number]) on 02/18/2019 3:05:37 PM Referred By: Confirmed By:TOMÁS BARTON MD
== END 2019-02-17 17:22 | disposition left against medical advice (07) ==
LOC: JER 09:51 → JERBED 13:32
PROVIDERS: ADMIT Internal Medicine; ATTEND Internal Medicine
PROC: 3E033VG Introduction of Insulin into Peripheral Vein, Percutaneous Approach (ICD-10-PCS; principal; 2019-02-17)
PROC: 3E0F7GC Introduction of Other Therapeutic Substance into Respiratory Tract, Via Natural or Artificial Opening (ICD-10-PCS; 2019-02-17)
DX: R07.89 Other chest pain (principal); R06.09 Other forms of dyspnea; I10 Essential (primary) hypertension; I25.10 Atherosclerotic heart disease of native coronary artery without angina pectoris; I25.2 Old myocardial infarction; I73.9 Peripheral vascular disease, unspecified; E78.5 Hyperlipidemia, unspecified; E87.5 Hyperkalemia; R73.03 Prediabetes; K21.9 Gastro-esophageal reflux disease without esophagitis; F17.210 Nicotine dependence, cigarettes, uncomplicated; J44.9 Chronic obstructive pulmonary disease, unspecified; Z85.46 Personal history of malignant neoplasm of prostate; Z85.51 Personal history of malignant neoplasm of bladder; Z95.5 Presence of coronary angioplasty implant and graft; Z95.1 Presence of aortocoronary bypass graft; Z86.73 Personal history of transient ischemic attack (TIA), and cerebral infarction without residual deficits; Z79.84 Long term (current) use of oral hypoglycemic drugs
CPT/HCPCS: 36415; 71045-TC-FY; 80048; 80053; 82550; 82962; 83880; 84484; 85025; 93005; 93010; 93306-TC; 94640; 96372; 99285-25; G0378